=== PATIENT | female | born 1985 | race Two or more races ===

== ENCOUNTER 2025-04-16 21:20 | Emergency (ER) | payer MEDICAID, SELFPAY ==
[2025-04-16 21:23] VITALS: BMI 26.5
[2025-04-16 21:37] VITALS: BP 151/84; PULSE 82; RESP 18; TEMP 37.1; O2SAT 96
--- NOTE | 2025-04-16 21:47 | XR_ITS ---
Examination: CT abdomen and pelvis without contrast. Coronal 3-D reconstructions. Sagittal 2-D reconstructions. Date and time of exam: April 16, 2025, 11:37 p.m. INDICATIONS: Onset lower abdominal pain today CTDI: vol (mGy): 6.63 DLP: (mGycm): 344 Technique: Axial images of the abdomen have been obtained, 3 mm slice thickness Intravenous contrast material has not been administered. Low dose protocols were performed. One or more of the following dose reduction techniques were used; automated exposure control, adjustment of the mA and/or KV according to patient size, use of iterative reconstruction technique. Findings: Trace pericardial effusion No focal liver or splenic lesion Absent gallbladder No pancreatic or adrenal mass No renal or ureteral calculi, no hydronephrosis Aorta normal size Normal appendix No bowel obstruction 25 mm right ovarian cyst Urinary bladder intact Moderate degenerative disc disease L5-S1 IMPRESSION: No renal or ureteral calculi, no hydronephrosis Normal appendix 25 mm right ovarian cyst
--- NOTE | 2025-04-16 21:47 | XR_ITS ---
Examination: Pelvic ultrasound, transabdominal, complete Technique: Transabdominal ultrasound of the pelvis performed using grayscale imaging Date and time of exam: April 16, 2025, 1042 hours INDICATIONS: Pelvic pain and vaginal bleeding today FINDINGS: Uterus 10.1 cm endometrial stripe 1 7 cm No uterine mass or intrauterine gestation Right ovary 2.8 cm arterial flow 24 x 18 x 19 mm cyst Left ovary 2.7 cm arterial flow, 13 x 12 x 9 mm cyst IMPRESSION: Small bilateral ovarian cysts
[2025-04-16 22:15] LABS: Basophils # (Auto) 0.0 Thou/mm3 (0.0-0.2); Basophils % (Auto) 0 % (0-2.5); Eosinophils # (Auto) 0.1 Thou/mm3 (0.0-0.5); Eosinophils % (Auto) 1 % (0-10); Hematocrit 39.7 % (36.0-46.0); Hemoglobin 12.9 g/dL (12.0-16.0); Immature Granulocytes Auto 0.03 Thou/mm3 (0.00-0.00); Lymphocytes # (Auto) 1.5 Thou/mm3 (1.0-4.8); Lymphocytes % (Auto) 13 % (10-50); Mean Corpuscular HGB Conc 32.5 g/dl (31.0-37.0); Mean Corpuscular Hemoglobin 28.0 pg (25.0-35.0); Mean Corpuscular Volume 86 fL (80-100); Monocytes # (Auto) 0.7 Thou/mm3 (0.0-0.8); Monocytes % (Auto) 6 % (0-12); Neutrophils # (Auto) 9.3 Thou/mm3 (1.8-7.7); Neutrophils % (Auto) 80 % (37-80); Nucleated Red Blood Cell # 0.00 Thou/mm3 (0.00-0.00); Nucleated Red Blood Cell % 0 /100 WBC (0); Platelet Count 256 Thou/mm3 (140-440); RDW Standard Deviation 41.9 fL (36.4-46.3); Red Blood Count 4.60 Miln/mm3 (4.00-5.20); White Blood Count 11.6 Thou/mm3 (3.6-11.0)
[2025-04-16 22:39] LABS: Alanine Aminotransferase 106 U/L (10-49); Albumin, Serum 4.9 gm/dL (3.5-5.0); Albumin/Globulin Ratio 1.8 (1.2-2.2); Alkaline Phosphatase 90 U/L (46-116); Anion Gap 11 (7-16); Aspartate Amino Transferase 37 U/L (0-34); BUN/Creatinine Ratio 17 Ratio (12-20); Bilirubin,Total 0.3 mg/dL (0.3-1.2); Blood Urea Nitrogen 12 mg/dL (9-23); Calcium 9.4 mg/dL (8.3-10.6); Calcium (Corrected) 9.4 mg/dL (8.5-10.1); Carbon Dioxide 27.3 mMol/L (20.0-31.0); Chloride 103 mMol/L (98-107); Creatinine (Component) 0.7 mg/dL (0.6-1.3); Estimated Creatinine Clearance 93.2 mL/min (>60); Globulin 2.8 gm/dL (2.3-3.5); Glucose 110 mg/dL (74-106); Lipase 35 U/L (12-53); Osmolality,Calculated 281 (275-295); Potassium 3.8 mMol/L (3.4-5.1); Sodium 141 mMol/L (136-145); Total Protein 7.7 gm/dL (5.7-8.2); eGFR > 60 See Note
[2025-04-16 22:40] LABS: Collection Type, Urine Clean Catch; Squamous Epithelial Cell,Urine 0 /hpf (0-5)
[2025-04-16 22:46] LABS: HCG Qualitative,Urine Negative
[2025-04-16 22:49] LABS: Bilirubin,Urine Negative (Negative); Blood,Urine 3+ (Negative); Clarity,Urine Bloody (Clear/Hazy); Color,Urine Dark-Brown (Lt Yel-Yel); Glucose, Urine Negative (Negative); Ketones,Urine Negative (Negative); Leukocyte Esterase,Urine Positive (Negative); Nitrite,Urine Negative (Negative); PH,Urine 6.0 (5.0-7.0); Protein,Urine 1+ (Neg - Trace); RBC,Urine 9408 /hpf (0-3); Specific Gravity,Urine 1.007 (1.001-1.035); Urobilinogen,Urine Negative mg/dL (0.0-1.0); WBC,Urine 39 /hpf (0-5)
[2025-04-17 00:26] VITALS: BP 147/84; PULSE 76; RESP 18; TEMP 36.9; O2SAT 97
--- NOTE | 2025-04-17 00:31 | EDNOTE_ITS ---
ED Abdominal Pain RME/HPI General Chief Complaint: Abdominal Pain Stated complaint: LOW ABD PAIN Time seen by provider: 04/16/25 21:46 Arrival date/time: 04/16/25 21:20 This is a case of 40-year-old female with no medical history came in in the emergency room due to lower abdominal with painful urination no hematuria with urgency and increased frequency denies any nausea vomiting constipation diarrhea patient also have a abnormal vaginal bleeding for 2-days no other symptoms noted denies Limitations: no limitations Related Data Previous Rx's ?Medication ?Instructions ?Recorded cephalexin 500 mg capsule 500 mg PO QID #40 caps 04/17 ondansetron 4 mg disintegrating 4 mg PO Q8H #20 tabs 1 06/18/24 tablet phenazopyridine 200 mg tablet 200 mg PO TID 6 doses #6 tabs 04/17/25 (Pyridium) tramadol 50 mg tablet 50 mg PO Q8H PRN pain #10 ta bs 04/17/25 Allergies Allergy/AdvReac Type Severity Reaction Status Date / Time No Known Allergies Allergy Verified 04/16/25 21:29 Review of Systems Review of Systems Systems Reviewed: All systems reviewed, normal except as documented Constitutional Constitutional: Reports system reviewed and no additional complaints, except as documented and Reports as per HPI Cardiovascular Cardiovascular: Reports system reviewed and no additional complaints, except as documented and Reports as per HPI Respiratory Respiratory: Reports system reviewed and no additional complaints, except as documented and Reports as per HPI Gastrointestinal Gastrointestinal: Reports system reviewed and no additional complaints, except as documented and Reports as per HPI Genitourinary Genitourinary: Reports system reviewed and no additional complaints, except as documented and Reports as per HPI Neurologic Neurologic: Reports system reviewed and no additional complaints, except as documented and Reports as per HPI Past Medical History Social History SMOKING STATUS: Never smoker ED Exam General Limitations: Present no limitations General appearance: Present alert, in no apparent distress and other (Patient is awake alert oriented not in distress nontoxic looking well-hydrated nourished) Head Head exam: Present atraumatic, normocephalic and normal inspection Eye Eye exam: Present normal appearance, PERRL and EOMI ENT ENT exam: Present normal exam, normal oropharynx and mucous membranes moist Neck Neck exam: Present normal inspection, full ROM and trachea midline; Absent tenderness, meningismus, lymphadenopathy or thyromegaly Chest Chest inspection: Present normal inspection and symmetric chest wall rise; Absent tenderness Respiratory Respiratory exam: Present normal lung sounds bilaterally; Absent respiratory distress, wheezes, stridor, accessory muscle use or prolonged expiratory phase Cardiovascular Cardiovascular exam: Present regular rate, normal rhythm and normal heart sounds; Absent bradycardia, tachycardia, irregular rhythm, systolic murmur or diastolic murmur Abdominal Exam Abdominal exam: Present soft, tenderness (Mild tenderness suprapubic area no CVA tenderness) and normal bowel sounds; Absent distention, guarding, rebound, rigidity, diminished bowel sounds, hyperactive bowel sounds, hypoactive bowel sounds, organomegaly, trauma, psoas sign, obturator sign, heel tap sign, Valadez' s sign, Rovsing's sign, tenderness at McBurney's Point or hernia Extremities Exam Extremities exam: Present normal inspection and full ROM Back Exam Back exam: Present normal inspection and full ROM; Absent tenderness, CVA tenderness (R), CVA tenderness (L), muscle spasm, paraspinal tenderness, verteb ral tenderness, rashes, sciatic notch tenderness (R), sciatic notch tenderness (L), straight leg raise (R) or straight leg raise (L) Neurological Exam Neurological exam: Present alert, oriented X3, CN II-XII intact, normal gait and reflexes normal; Absent motor sensory deficit Psychiatric Psychiatric exam: Present normal affect and normal mood Skin Skin exam: Present warm, dry, intact, normal color and other (excellent skin turgor) Course Quality Measures none Orders Category Date Time Status CT abdomen pelvis wo con Stat Exams 04/16/25 21:47 Completed US pelvic complete Stat Exams 04/16/25 21:47 Completed CBC Stat Lab 04/16/25 21:53 Completed Comprehensive Metabolic Panel Stat Lab 04/16/25 21:53 Completed HCG Qualitative,Urine Stat Lab 04/16/25 22:30 Completed Lipase Stat Lab 04/16/25 21:53 Completed Urinalysis Stat Lab 04/16/25 22:30 Completed HYDROcodone*/APAP 5/325 [[place] 5/325] Med 04/17/25 00:24 Discontinued 1 tab PO X1 ONE Ondansetron Odt [Zofran Odt] Med 04/17/25 00:24 Discontinued 4 mg PO X1 ONE cefTRIAXone [Rocephin] 1,000 mg Med 04/17/25 00:25 Discontinued Lidocaine 1% Pf Vial 5ml [Xylocaine 1% 5 ml] 2.1 ml IM X1 Vital Signs Vital signs: Vital Signs Temperature 98.8 F 04/16/25 21:37 Pulse Rate 82 04/16/25 21:37 Respiratory Rate 18 04/16/25 21:37 Blood Pressure 151/84 H 04/16/25 21:37 Pulse Oximetry (%) 96 04/16/25 21:37 Oxygen Delivery Method Room Air 04/16/25 21:37 Oxygen saturation is 96% in room air normal Abdominal Pain MDM MDM Narrative MDM Narrative:: This is a case of 40-year-old female with no medical history came in in the emergency room due to lower abdominal with painful urination no hematuria with urgency and increased frequency denies any nausea vomiting constipation diarrhea patient also have a abnormal vaginal bleeding for 2-days no other symptoms noted denies physical examination patient is awake alert oriented not in distress nontoxic looking well-hydrated well-nourished abdominal exam noted mild tender on the suprapubic area no guarding no rebound no rigidity no CVA tendrnes s patient refused pelvic exam due to vaginal bleeding and discomfort no vaginal discharge no vaginal irritation patient blood test showed leukocytosis of 11,000 no anemia kidney and liver function is normal no electrolyte imbalance lipase is normal urinalysis showed WBC and RBC in the urine ultrasound showed ovarian cyst CT scan is unremarkable Ovarian cyst patient was advised to follow-up with PCP to be referred to OB creosoting engineer for further evaluation and treatment of abnormal vaginal bleeding and ovarian cyst for any worsening symptoms or any emergent concern return precaution in the ER is advised patient was given ceftriaxone here in the emergency room for UTI and followed with cephalexin to be taken for 10 days he was also given medication for pain and for vomiting Patient was discharged with comfortable condition walking with stable gait. Patient verbalized no further complains explained diagnosis and answered patient question. Patient is comfortable with the proposed management plan including the need to follow up with his/her primary care physician and any specialist if applicable Discussed patient for any urgent condition or worsening sx, He/She needed to go to emergency room immediately or call 911. Patient acknowledge the responsibility to follow up as instructed and to monitor her/his symptoms. For any persistence of the symptoms for more than 3-5 days return precaution advised. Discussed the result of the test and was given printed discharge instruction Patient data External records reviewed:: [facility] previous records Clinical information provided by:: patient Social determinants that could affect healthcare access:: none Patient has the following chronic illnesses:: None How is presenting disease/condition affected by chronic disease/condition?: no chronic disease Evaluation data The following diagnostics were reviewed and interpreted by me:: lab results and radiology exam(s) Lab and/or radiology exams considered but not ordered:: Reviewed Interpretation Summary: Reviewed Medications / Prescriptions Medications or Prescriptions considered but not ordered:: Given Medication administrations:: Medication Administration History Discontinued Medications Hydrocodone Bitart/Acetaminophen (Hydrocodone/Apap 5/325 Tablet) 1 tab PO X1 ONE Stop: 04/17/25 00:25 Ceftriaxone Sodium 1,000 mg/ (Lidocaine HCl 2.1 ml) 0 mg IM X1 ONE Stop: 04/17/25 00:26 Ondansetron HCl (Ondansetron Odt 4 Mg Tabrap) 4 mg PO X1 ONE; Protocol Stop: 04/17/25 00:25 Given Consultations Consultation(s) initiated? (list below): No Diagnosis Differential diagnosis abdominal pain: abdominal pain, calculus of kidney, diverticulitis, endometriosis, gastroenteritis, pancreatitis and small bowel obstruction Most likely diagnosis given after review of the tests above:: Urinary tract infection ovarian cyst Admission Indicated Admission indicated?: not indicated Explain why admission is indicated or not indicated:: Not indicated Admission Request Was there a request for admission?: No Admission Attestation Admission request attestation: Not indicated Disposition Plan Disposition Plan: Discharge Discharge Attestation Discharge Attestation: The patient and all family members were given an opportunity to ask questions and understood the discharge instructions. Discharge instructions specifically effects, indications for sooner follow up or return to the emergency department, and the expected course of current diagnosis. Patient condition: Stable Discharge Plan Plan Patient Disposition: HOME (Self Care) Patient condition on transfer: Stable Prescriptions/Referrals Prescriptions/Med Rec: New cephalexin 500 mg capsule 500 mg PO QID Qty: 40 0RF ondansetron 4 mg tablet,disintegrating 4 mg PO Q8H Qty: 20 0RF tramadol 50 mg tablet 50 mg PO Q8H MDD max 4 tabs per day PRN (Reason: pain) Qty: 10 0RF phenazopyridine [Pyridium] 200 mg tablet 200 mg PO TID 0 Days Qty: 6 0RF Referrals: No Primary/Family,Physician [Primary Care Provider] - In 1 week Problem List Clinical Impression: Abdominal pain, Urinary tract infection, Abnormal vaginal bleeding, Ovarian cyst Patient/Caregiver Discharge Instructions Education Materials: Abdominal Pain, Ovarian Cysts, Urinary Tract Infections in Women, ED Dysfunctional Uterine Bleeding Additional Instructions: Follow-up with your primary care physician in 2 days for reevaluation worsening symptoms or any emergent concern call 911 or go to the nearest emergency room take your medication as directed finish the course of antibiotic increase water intake keep hydrated Pedialyte Gatorade for hydration is advised it is very important to see a OB creosoting engineer for further evaluation and treatment of abnormal vaginal bleeding and ovarian cyst Print Language: Angolan Stand Alone Forms: [employer] Award Info., Patient Portal Info Letter PA/INSTALLER INSPECTOR FINAL Supervising Physician PA/INSTALLER INSPECTOR FINAL Supervising Physician: dr vinny sprague
[2025-04-17] MEDS: ONDANSETRON ODT 4 MG TABRAP PO (00:37)
[2025-04-17] MEDS: HYDROcodone/APAP 5/325 TABLET 1 TAB PO (00:37)
== END 2025-04-17 00:59 | disposition home or self-care (01) ==
PROVIDERS: Nurse Practitioner Family; Emergency Provider Emergency Medicine
DX: N39.0 Urinary tract infection, site not specified (principal); N83.202 Unspecified ovarian cyst, left side; N83.201 Unspecified ovarian cyst, right side
CPT/HCPCS: 36415; 74176; 76856; 80053; 81001; 81025; 83690; 85025; 96372; 99284; J0696; J3490; Q0162; A9270